=== PATIENT | male | born 1965 | race Caucasian/White ===

== ENCOUNTER 2021-03-30 14:42 | Emergency (ER) | payer SELFPAY ==
[~2021-03-30] VITALS: Ht 175.2 cm; Wt 62.1 kg
[2021-03-30 15:25] LABS: BASO # 0.1 10*3/uL (0.0-0.1); BASO % 0.6 % (0.0-1.0); EOS # 0.2 10*3/uL (0.0-0.4); EOS % 2.7 % (1.0-4.0); HEMATOCRIT 45.9 % (42.0-52.0); LYMPH # 2.1 10*3/uL (1.3-4.4); LYMPH % 23.4 % (27.0-41.0); MEAN CELL VOLUME 93.9 fl (80.0-94.0); MEAN CORPUSCULAR HGB 31.5 pg (27.0-31.0); MEAN CORPUSCULAR HGB CONC 33.6 g/dl (33.0-37.0); MEAN PLATELET VOLUME 9.7 fl (9.6-12.3); MONO # 0.9 10*3/uL (0.1-1.0); MONO % 10.7 % (3.0-9.0); NEUT # 5.5 10*3/uL (2.3-7.9); PLATELET COUNT AUTOMATED 325 10*3/uL (130-400); RED BLOOD COUNT 4.89 10*6/uL (4.50-5.90); RED CELL DISTRI WIDTH 13.1 % (0-14.5); WHITE BLOOD COUNT 8.8 10*3/uL (4.8-10.8)
[2021-03-30 15:37] LABS: ACT PARTIAL THROMBO TIME 28.2 SECONDS (20.0-32.1)
[2021-03-30 15:41] LABS: ALBUMIN 3.8 gm/dl (3.1-4.5); CREATININE 1.64 mg/dL (0.70-1.30); TOTAL PROTEIN 7.4 gm/dL (6.4-8.2)
[2021-03-30 15:42] LABS: CKMB 1.7 ng/ml (0.5-3.6)
== END 2021-03-30 17:57 | disposition left against medical advice (07) ==
LOC: ED 14:42
PROVIDERS: Emergency Medicine
DX: G45.9 Transient cerebral ischemic attack, unspecified (principal); Z88.0 Allergy status to penicillin

== ENCOUNTER 2021-06-18 18:38 | Emergency (ER) | payer OTHER ==
[~2021-06-18] VITALS: Ht 175.2 cm; Wt 57.6 kg
[~2021-06-18 18:38] MED LIST: ASPIRIN ADULT L81 M2 PO; CLOPIDOGREL75 MG PO; LIPITOR40 MG PO
[2021-06-19] MEDS ORDERED: LIPITOR40 MG PO (10:56)
[2021-06-19] MEDS ORDERED: PLAVIX75 M1 PO (10:56)
== END 2021-06-18 19:39 | disposition home or self-care (01) ==
LOC: ED 18:38
DX: I63.9 Cerebral infarction, unspecified (principal); Z76.0 Encounter for issue of repeat prescription; Z88.0 Allergy status to penicillin; Z87.891 Personal history of nicotine dependence

== ENCOUNTER → 2021-07-18 | Outpatient (CLI) | payer OTHER ==
[~2021-07-18] MED LIST changes: +PLAVIX75 M1 PO
== END | disposition home or self-care (01) ==
LOC: CARD 07-06 10:30
PROVIDERS: ATTEND Internal Medicine Cardiovascular Disease
DX: I07.1 Rheumatic tricuspid insufficiency (principal); Z86.73 Personal history of transient ischemic attack (TIA), and cerebral infarction without residual deficits

== ENCOUNTER → 2021-09-27 | Outpatient (CLI) | payer OTHER ==
[2021-09-27 12:54] LABS: CHOLESTEROL 121 mg/dL (<200); LDL CHOLESTEROL 60 mg/dL (9-159); TRIGLYCERIDES 74 mg/dl (<150)
== END | disposition home or self-care (01) ==
LOC: LAB 12:08
PROVIDERS: ATTEND Psychiatry & Neurology Neurology
DX: Z79.899 Other long term (current) drug therapy (principal)

== ENCOUNTER → 2022-03-24 | Outpatient (CLI) | payer OTHER ==
[2022-03-24 11:56] LABS: BASO # 0.1 10*3/uL (0.0-0.1); BASO % 0.7 % (0.0-1.0); EOS # 0.4 10*3/uL (0.0-0.4); EOS % 5.5 % (1.0-4.0); HEMATOCRIT 45.3 % (42.0-52.0); LYMPH # 2.2 10*3/uL (1.3-4.4); LYMPH % 32.5 % (27.0-41.0); MEAN CORPUSCULAR HGB 30.5 pg (27.0-31.0); MEAN CORPUSCULAR HGB CONC 33.6 g/dl (33.0-37.0); MONO # 0.9 10*3/uL (0.1-1.0); MONO % 12.7 % (3.0-9.0); NEUT # 3.3 10*3/uL (2.3-7.9); NEUT % 48.3 % (47.0-73.0); PLATELET COUNT AUTOMATED 234 10*3/uL (130-400); RED BLOOD COUNT 4.98 10*6/uL (4.50-5.90); RED CELL DISTRI WIDTH 13.9 % (0-14.5); WHITE BLOOD COUNT 6.9 10*3/uL (4.8-10.8)
[2022-03-24 12:13] LABS: ALKALINE PHOSPHATASE 102 U/L (45-117); BUN 15 mg/dl (7-24); CHLORIDE 110 mmol/L (98-107); CHOLESTEROL 134 mg/dL (<200); CREATININE 0.78 mg/dL (0.70-1.30); LDL CHOLESTEROL 70 mg/dL (9-159); POTASSIUM 4.2 mmol/L (3.5-5.1); SGOT/AST 26 IU/L (3-35); SGPT/ALT 48 U/L (12-78); SODIUM 139 mmol/L (136-145); TOTAL PROTEIN 7.2 gm/dL (6.4-8.2); TRIGLYCERIDES 118 mg/dl (<150)
== END ==
LOC: LAB 11:41
PROVIDERS: Nurse Practitioner Family; ATTEND Nurse Practitioner Family
DX: Z00.00 Encounter for general adult medical examination without abnormal findings (principal); E78.2 Mixed hyperlipidemia; I63.20 Cerebral infarction due to unspecified occlusion or stenosis of unspecified precerebral arteries; Z68.20 Body mass index [BMI] 20.0-20.9, adult; Z79.01 Long term (current) use of anticoagulants

== ENCOUNTER 2023-04-02 12:46 | Emergency (ER) | payer MEDICAID ==
[~2023-04-02] VITALS: Ht 175.2 cm; Wt 72.6 kg
[2023-04-02] MEDS ORDERED: ATORVASTATIN CA40 M1 PO (17:10)
[2023-04-02 17:29] LABS: HEMATOCRIT 44.3 % (42.0-52.0); MEAN CELL VOLUME 90.4 fl (80.0-94.0); MEAN CORPUSCULAR HGB 30.6 pg (27.0-31.0); MEAN CORPUSCULAR HGB CONC 33.9 g/dl (33.0-37.0); MEAN PLATELET VOLUME 10.1 fl (9.6-12.3); PLATELET COUNT AUTOMATED 242 10*3/uL (130-400); RED CELL DISTRI WIDTH 13.1 % (0-14.5); WHITE BLOOD COUNT 10.1 10*3/uL (4.8-10.8)
[2023-04-02 17:50] LABS: TOTAL CELLS COUNTED 100 #CELLS
[2023-04-02 17:52] LABS: OVALOCYTES FEW; PLATELET SUFFICIENCY NORMAL (NORMAL)
[2023-04-02 18:00] LABS: ALKALINE PHOSPHATASE 103 U/L (46-116); BUN 10 mg/dl (9-23); CHLORIDE 108 mmol/L (98-107); POTASSIUM 3.4 mmol/L (3.4-5.1); SGPT/ALT 24 U/L (5-49); TOTAL PROTEIN 6.9 gm/dL (6.0-8.0); URIC ACID 4.2 mg/dL (3.7-9.2)
[2023-04-02 19:23] LABS: MANUAL DIFF REFLEX YES
[2023-04-02] MEDS ORDERED: PREDNISONE50 MG PO (19:31)
== END 2023-04-02 19:42 | disposition home or self-care (01) ==
LOC: ED 12:46
PROVIDERS: Physician Assistant Medical
DX: M10.9 Gout, unspecified (principal); M71.21 Synovial cyst of popliteal space [Baker], right knee; Z88.0 Allergy status to penicillin; F17.200 Nicotine dependence, unspecified, uncomplicated

== ENCOUNTER 2023-05-26 15:24 | Emergency (ER) | payer MEDICAID ==
[~2023-05-26] VITALS: Ht 175.2 cm; Wt 68.0 kg
[~2023-05-26 15:24] MED LIST changes: +ATORVASTATIN CA40 M1 PO; +PREDNISONE50 MG PO
[2023-05-26] MEDS ORDERED: MELOXICAM15 MG PO (16:50)
== END 2023-05-26 16:43 | disposition home or self-care (01) ==
LOC: ED 15:24
DX: S63.501A Unspecified sprain of right wrist, initial encounter (principal); I10 Essential (primary) hypertension; F17.200 Nicotine dependence, unspecified, uncomplicated; Z88.0 Allergy status to penicillin; Z79.82 Long term (current) use of aspirin; Z79.899 Other long term (current) drug therapy; W00.0XXA Fall on same level due to ice and snow, initial encounter; Y93.89 Activity, other specified; Y92.89 Other specified places as the place of occurrence of the external cause; Y99.8 Other external cause status

== ENCOUNTER 2024-10-02 13:47 | Emergency (ER) | payer MEDICAID ==
[~2024-10-02] VITALS: Ht 175.2 cm; Wt 72.6 kg
[~2024-10-02 13:47] MED LIST changes: +MELOXICAM15 MG PO
[2024-10-02] MEDS ORDERED: Ketorolac Tromethamine 30 MG/ML VIAL IM ONE (14:05)
[2024-10-02] MEDS ORDERED: PREDNISONE10 MG PO (14:42)
== END 2024-10-02 14:40 | disposition home or self-care (01) ==
LOC: ED 13:47
DX: M10.061 Idiopathic gout, right knee (principal); Z79.899 Other long term (current) drug therapy; Z86.73 Personal history of transient ischemic attack (TIA), and cerebral infarction without residual deficits; Z88.0 Allergy status to penicillin

== ENCOUNTER → 2024-12-10 | Outpatient (CLI) | payer MEDICAID ==
[~2024-12-10] MED LIST changes: +PREDNISONE10 MG PO
[2024-12-10 14:31] LABS: BASO # 0.0 10*3/uL (0.0-0.1); BASO % 0.5 % (0.0-1.0); EOS # 0.3 10*3/uL (0.0-0.4); EOS % 3.5 % (1.0-4.0); MEAN CELL VOLUME 90.7 fl (80.0-94.0); MEAN CORPUSCULAR HGB 29.8 pg (27.0-31.0); MEAN PLATELET VOLUME 10.3 fl (9.6-12.3); MONO # 0.8 10*3/uL (0.1-1.0); MONO % 9.5 % (3.0-9.0); NEUT # 5.1 10*3/uL (2.3-7.9); NEUT % 61.6 % (47.0-73.0); NUCLEATED RED BLOOD CELL 0.0 % (0.0-0.0); NUCLEATED RED BLOOD CELL 0.0 10*3/uL (0.0-0.0); PLATELET COUNT AUTOMATED 301 10*3/uL (130-400); RED CELL DISTRI WIDTH 13.3 % (0-14.5)
[2024-12-10 15:07] LABS: BUN 12 mg/dl (9-23); LDL CHOLESTEROL 49 mg/dL (9-159); SGPT/ALT 27 U/L (5-49)
== END | disposition home or self-care (01) ==
LOC: LAB 13:42
PROVIDERS: ATTEND Nurse Practitioner Family
DX: I10 Essential (primary) hypertension (principal); E78.2 Mixed hyperlipidemia; E66.3 Overweight; Z12.5 Encounter for screening for malignant neoplasm of prostate; Z79.01 Long term (current) use of anticoagulants